=== PATIENT | female | born 1970 | race Caucasian/White ===

== ENCOUNTER 2017-04-07 08:54 | Outpatient (CLI) | payer BC ==
--- NOTE | 2017-04-07 11:49 | MRI ---
MRI RIGHT SHOULDER WITHOUT CONTRAST: HISTORY: Right shoulder pain. Slipped and fell a month ago. Unable to raise the shoulder. COMPARISON: Shoulder radiograph 02/20/17. FINDINGS: Biceps Tendon: There is extensive extraarticular biceps tenosynovitis. There is also interstitial t earing of the intertrabecular groove with medial displacement into an interstitial tear of the subsca pularis. An intraarticular biceps tendon is thinned. Glenoid Labrum: There is degenerative tearing of the superior labrum. Rotator Cuff: There is a full-thickness tear of the anterior 1 cm supraspinatus tendon from the foot plate with a 6 mm gap. There is also high-grade near full-thickness bursal surface tearing of the i nfraspinatus tendon and the caudal fibers of the supraspinatus tendon. Extensive interstitial tearin g is present. The rotator cable is displaced medially. There is extensive interstitial tearing of the subscapularis. Muscles: There is abnormal edema along the myotendinous junction and of the infraspinatus muscle. T here is 10-20% atrophy of the supraspinatus muscle. Bones: Moderate degenerative disease of acromioclavicular joint. No acute fracture. IMPRESSION: 1. Extensive extraarticular biceps tendosynovitis with interstitial tearing as well as subluxation i nto interstitial tear of the subscapularis. 2. Full-thickness tear anterior 1 cm fibers supraspinatus tendon from the footplate with 6 mm gap. 3. High-grade near-complete bursal surface tear of the posterior fibers of the supraspinatus tendon as well as the anterior 50% fibers of infraspinatus approximately 7 mm from the footplate. The rotat or cable is medially displaced approximately 4 mm. 4. Moderate degenerative signal throughout the superior labrum. 5. Moderate degenerative disease acromioclavicular joint. 6. Edema of the rotator interval suggesting capsulitis. POS: OFF
== END 2017-04-07 08:55 | disposition home or self-care (01) ==
LOC: SCSMRI 08:54
PROVIDERS: ATTEND Orthopaedic Surgery
DX: M25.511 Pain in right shoulder (principal); M19.011 Primary osteoarthritis, right shoulder; M75.101 Unspecified rotator cuff tear or rupture of right shoulder, not specified as traumatic

== ENCOUNTER 2017-05-25 09:33 | Outpatient (CLI) | payer BC ==
[2017-05-25 11:49] LABS: #Basophils 0.1 thou/uL (0.0-0.2); #Eosinphils 0.2 thou/uL (0.0-0.7); #Lymphocytes 3.2 thou/uL (1.20-3.40); #Monocytes 0.9 thou/uL (0.11-0.59); #Neutrophils 5.5 thou/uL (1.40-6.50); %Basophils 0.8 % (0.0-1.0); %Lymphocytes 32.2 % (21.0-51.0); %Monocytes 8.7 % (0.0-10.0); %Neutrophils 56.4 % (42.0-75.0); Hemoglobin 13.6 g/dL (12.0-16.0); Mean Corpuscular HGB CONC 33.1 g/dL (32.0-36.0); Mean Corpuscular Hemoglobin 33.4 pg (27.0-31.0); Mean Platelet Volume 7.7 fL (7.4-10.4); Platelet Count 337 thou/uL (130-400); RBC Distribution Width 11.9 % (11.5-14.5); Red Blood Cell (RBC) Count 4.06 mill/uL (4.20-5.40); White Blood Cell (WBC) Count 9.8 thou/uL (4.8-10.8)
== END 2017-05-25 09:34 | disposition home or self-care (01) ==
LOC: LABBT 09:33
PROVIDERS: ATTEND Orthopaedic Surgery
DX: Z01.812 Encounter for preprocedural laboratory examination (principal); M75.101 Unspecified rotator cuff tear or rupture of right shoulder, not specified as traumatic
CPT/HCPCS: 85025; 93005; 93010

== ENCOUNTER 2017-05-27 05:39 | Day surgery (SDC) | payer BC ==
[2017-05-25 10:25] VITALS: BMI 36.3
[2017-05-27] MEDS ORDERED: CEFAZOLIN/Water 2 GM/20 ML SYRINGE ONE (06:20)
[2017-05-27] MEDS ORDERED: Midazolam HCl 2 mg/2 ml Vial ONE (06:36)
[2017-05-27] MEDS ORDERED: Fentanyl 100 MCG/2 ML VIAL ONE (06:36)
[2017-05-27] MEDS ORDERED: Bupivacaine/Epinephrine 0.25% 30 ML VIAL ONE (06:47)
[2017-05-27] MEDS ORDERED: traMADol HCl 50 MG TAB PO PRN ×2 (07:05)
[2017-05-27] MEDS ORDERED: Promethazine HCl 25 MG/ML VIAL IM PRN (07:05)
[2017-05-27] MEDS ORDERED: Ondansetron HCl/PF 4 MG/2 ML Vial IVP PRN (07:05)
[2017-05-27] MEDS ORDERED: Ropivacaine 0.2% 550 ML 550 ML NERVE BLCK SCH (07:05)
[2017-05-27] MEDS ORDERED: Zolpidem Tartrate 5 MG TAB PO PRN (07:05)
--- NOTE | 2017-05-27 07:05 | HP ---
CHIEF COMPLAINT: Right shoulder pain. HISTORY OF PRESENT ILLNESS: Ms. Anderson is a pleasant 47-year-old right hand dominant female who works at the [employer]. The patient fell back at [place] with arm abducted. She continued to have pain in her shoulder, had imaging performed, MRI showing a rotator cuff tear. The patient presents for operative intervention. PAST MEDICAL HISTORY: Hypercholesterolemia, hypothyroidism, hypertension. PAST SURGICAL HISTORY: Low back procedure, not otherwise specified. CURRENT MEDICATIONS: Levothyroxine, control, fenofibrate, lisinopril. ALLERGIES: NAPROXEN. SOCIAL HISTORY: Positive smoker. . 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 REVIEW OF SYSTEMS: Noncontributory. PHYSICAL EXAMINATION: VITAL SIGNS: Afebrile, stable. GENERAL: Alert and oriented, no acute distress. The patient is resting comfortably in bed. HEENT: Normocephalic, atraumatic. Extraocular movements are intact. CHEST: Breath sounds unlabored. HEART: Regular rate and rhythm. ABDOMEN: Nontender, nondistended. EXTREMITIES: Right lower extremity 160 elevation, 50 external rotation. Neurovascular intact, dista lly tender to palpation lateral shoulder. She has a positive Monae's. LABORATORY AND X-RAY FINDINGS: MRI findings with full thickness supraspinatus with a leading edge of the infraspinatus tear with retraction and some grade I fatty atrophy, interstitial tearing and morejon ges of the biceps and acromioclavicular joint degenerative changes. IMPRESSION: 1. A full-thickness acute on chronic right rotator cuff tear with fatty atrophy. 2. Biceps tendinosis. 3. Possible impingement. PLAN: The patient will be taken to the OR for a right shoulder subacromial decompression, possible s ubacromial decompression, biceps tenotomy versus tenodesis and rotator cuff repair. I discussed with patient the risks and benefits of surgery. She understands and elects to proceed.
[2017-05-27] MEDS ORDERED: Fentanyl 100 MCG/2 ML VIAL IV PRN (07:06)
[2017-05-27] MEDS ORDERED: HYDROcodone/Acetaminophen 7.5/325 mg Tablet PO PRN ×2 (07:07→07:08)
[2017-05-27] MEDS ORDERED: PHENYLEPHRINE-NS 100 MCG/ML 10 ML SYRINGE ONE ×2 (08:00→13:40)
[2017-05-27] MEDS ORDERED: Phenylephrine HCL 10 MG/ML VIAL ONE (08:00)
[2017-05-27] MEDS ORDERED: Ketorolac Tromethamine 30 MG/ML VIAL IVP SCH (12:00)
--- NOTE | 2017-05-27 12:38 | OP ---
DATE OF PROCEDURE: 05/27/2017 POSTOPERATIVE DIAGNOSES: Right full thickness supraspinatus tear with leading infraspinatus leading edge subscapularis tear, biceps tendinosis, possible impingement. POSTOPERATIVE DIAGNOSES: Right full thickness leading edge supraspinatus tear, full thickness with full-thickness supraspinatus with leading edge infraspinatus tear, biceps tendinosis with 30% tearing , subscapularis partial tearing. Impingement. PROCEDURE PERFORMED: 1. Right rotator cuff repair. 2. Right biceps tenodesis. 3. Right subacromial decompression. STAFF: Alejandro Tafoya M.D. FACILITIES ENGINEER: FIONA Hull ANESTHESIA: Staff is Donta Pedersen, the patient received a general endotracheal intubation with inte rscalene block. ESTIMATED BLOOD LOSS: 30 mL. TOURNIQUET TIME: None. IMPLANTS: A 5.5 corkscrew x2 and a 5.5 SwiveLock x2. COMPLICATIONS: None. HISTORY OF PRESENT ILLNESS: Ms. 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 The patient had a full thickness tear of supraspinatus, biceps tendon and interstitial tearing signs of impingement. The patient fell over [place], pain is 5-6/10. She is a smoker. I discussed with her the risks and benefits of operative fixation for possible biceps tenotomy versus t enodesis, rotator cuff repair with subacromial decompression. She understood the risks and benefits to include pain, scar, bleeding, infection, damage to vital structures, decreased range of motion or strength, failure of repair, need for further surgeries, loss of life or limb. I discussed with the patient that her smoking will directly inhibit her ability to heal her rotator cuff repair. The juliette ent understood the risks and benefits and elected to proceed. PROCEDURE IN DETAIL: Timeout was performed designating the patient's right upper extremity as the op erative site based on sight, consents and marking. After completion of timeout, the patient's right upper extremity was prepped and draped in sterile fashion in beach chair position. All bony prominen cameron were well padded. She was stable through the course of the case. Posterior working portal and a nterior working portal, visualized intraarticularly. I saw the obvious full thickness tear intraarti cular of the supraspinatus, infraspinatus with some changes over the tuberosity to the articular liana in. The patient had about a 30% tear of the biceps which was visible on the intraarticular as well a s the leading edge of the subscapularis. She had fraying and interstitial damage when I pulled the b iceps into the groove and it did not look healthy. Given this, I performed a tenotomy. I tagged the biceps, evaluated the rest of the joint. No loose bodies, no other significant osteoarthritic defec ts. I moved subacromially, debrided all the bursa. I then took the cautery and cauterized the subac romial space and used a shaver and shaved down the subacromial space and shave bleeding bone on the g reater tuberosity up to the articular margin. I found the biceps. It was ratty and I was concerned about a tenodesis screw because it looked almost like a horse tail, felt that sewing it down would be better position. Therefore, I started and did not completely decompress the tunnel transverse ligam ent across the biceps. Therefore, I just stopped, left it partially in place. I then went back to m y arthroscopic rotator cuff repair. After my decompression, I then placed anchors off the anterior c artilage surface, two 5.5 anchors. I passed sutures through anterior to posterior, sewed 4 knots hor izontal mattress and then placed a double row laterally, placed my posterior row more posteriorly and my lateral just right at the bicipital groove. I then pulled the string and used the 4 sutures to a ctually sew with passing sutures and a looping around the biceps and sewing biceps into place. It wa s tethered both by the remnant of the groove as well as a suture to hold in place, but I feel like wi ll give a nice scar plane to scar into. I then washed, closed. Closed with 3-0 nylon, placed the pa tient on abduction pillow. She will perform elbow, wrist, and hand motion. I will see her back in 2 weeks.
[2017-05-27] MEDS ORDERED: Ropivacaine 0.5% HCl/PF (150 MG/30 ML VIAL) ONE (13:33)
[2017-05-27] MEDS ORDERED: Ropivacaine 0.2% HCl/PF (40 MG/20 ML VIAL) ONE (13:33)
[2017-05-27] MEDS ORDERED: Ketorolac Tromethamine 30 MG/ML VIAL ONE (13:40)
[2017-05-27] MEDS ORDERED: Glycopyrrolate 0.2 MG/ML 5 ML SYRINGE ONE (13:40)
[2017-05-27] MEDS ORDERED: Lidocaine 1% PF 5 ML VIAL ONE (13:40)
[2017-05-27] MEDS ORDERED: PROPOFOL 200 MG/20 ML VIAL ONE (13:40)
[2017-05-27] MEDS ORDERED: Dexamethasone 20 MG/5 ML VIAL ONE (13:40)
[2017-05-27] MEDS ORDERED: Ondansetron HCl/PF 4 MG/2 ML Vial ONE (13:40)
== END 2017-05-27 12:00 | disposition home or self-care (01) ==
LOC: SDC 05:39
PROVIDERS: ATTEND Orthopaedic Surgery
PROC: 0LM14ZZ Reattachment of Right Shoulder Tendon, Percutaneous Endoscopic Approach (ICD-10-PCS; principal; 2017-05-27)
PROC: 0LS14ZZ Reposition Right Shoulder Tendon, Percutaneous Endoscopic Approach (ICD-10-PCS; principal; 2017-05-27)
PROC: 0RNJ4ZZ Release Right Shoulder Joint, Percutaneous Endoscopic Approach (ICD-10-PCS; principal; 2017-05-27)
DX: M75.121 Complete rotator cuff tear or rupture of right shoulder, not specified as traumatic (principal); M75.21 Bicipital tendinitis, right shoulder; I10 Essential (primary) hypertension; E78.00 Pure hypercholesterolemia, unspecified; E07.9 Disorder of thyroid, unspecified; Z88.6 Allergy status to analgesic agent; Z79.899 Other long term (current) drug therapy
CPT/HCPCS: A4306; C1713; J1100; J1885; J2001; J2250; J2370; J2405; J2704; J2795; J3010

== ENCOUNTER 2019-01-10 08:20 | Outpatient (CLI) | payer BC ==
--- NOTE | 2019-01-10 10:57 | MRI ---
MRI LEFT SHOULDER: Date: 01/10/19 PROVIDED CLINICAL HISTORY: Left shoulder pain. FINDINGS: There is high grade partial thickness undersurface tearing involving the anterior distal supraspinatu s tendon at the footplate. The components of the rotator cuff appear otherwise intact. There is a thi ckened appearance to intraarticular segment of long head biceps tendon with associated increased sign al intensity on fluid sensitive sequences compatible with tendinosis or nonattenuating interstitial t earing. There is a mild glenohumeral joint effusion. There is signal alteration of the superior labrum compat ible with SLAP tear. There are foci of full thickness articular cartilage loss involving the glenoid, largest measuring about 4.0 mm. Acromioclavicular joint osteoarthrosis is demonstrated which produces mass effect upon the subjacent supraspinatus. Rotator cuff muscular volume appears preserved. No focal concerning regional marrow or muscular signal abnormality is evident. IMPRESSION: 1. High grade partial thickness undersurface tear involving supraspinatus tendon at the footplate. 2. Long head biceps tendinosis and/or nonattenuating partial tearing. 3. SLAP tear and glenoid articular chondrosis with mild glenohumeral joint effusion. 4. Acromioclavicular joint osteoarthrosis. POS: OFF
== END 2019-01-10 08:21 | disposition home or self-care (01) ==
LOC: SCSMRI 08:20
PROVIDERS: ATTEND Orthopaedic Surgery
DX: M25.512 Pain in left shoulder (principal); M19.012 Primary osteoarthritis, left shoulder; S43.432A Superior glenoid labrum lesion of left shoulder, initial encounter; M75.22 Bicipital tendinitis, left shoulder

== ENCOUNTER 2019-01-30 07:26 | Outpatient (CLI) | payer BC ==
[2019-01-30 14:08] LABS: BHCG - Serum Negative (NEGATIVE); Pregs Control Background? CLEAR/WHITE (CLR/WHITE); Pregs Control Bar Appear? YES (CONTROL BAR)
[2019-01-30 14:09] LABS: #Basophils 0.1 thou/uL (0.0-0.2); #Eosinphils 0.3 thou/uL (0.0-0.7); #Lymphocytes 3.9 thou/uL (1.20-3.40); #Monocytes 1.1 thou/uL (0.11-0.59); #Neutrophils 7.9 thou/uL (1.40-6.50); %Basophils 0.8 % (0.0-1.0); %Lymphocytes 29.2 % (21.0-51.0); %Monocytes 8.3 % (0.0-10.0); %Neutrophils 59.7 % (42.0-75.0); Hemoglobin 16.2 g/dL (12.0-16.0); Mean Corpuscular HGB CONC 33.4 g/dL (32.0-36.0); Mean Corpuscular Hemoglobin 33.3 pg (27.0-31.0); Mean Corpuscular Volume 99.8 fL (78.0-98.0); Mean Platelet Volume 8.9 fL (7.4-10.4); Platelet Count 236 thou/uL (130-400); RBC Distribution Width 12.2 % (11.5-14.5); Red Blood Cell (RBC) Count 4.88 mill/uL (4.20-5.40); White Blood Cell (WBC) Count 13.2 thou/uL (4.8-10.8)
[2019-01-30 14:11] LABS: Bacteria/HPF None Seen HPF (None Seen); Bilirubin Negative (Negative); Blood, Urine Negative (Negative); Clarity Clear (Clear); Glucose, Urine (Dipstick) Normal (Negative); Leukocyte Negative Leu/uL (Negative); Nitrite Negative (Negative); Protein, Urine (Dipstick) 10 mg/dL (Neg-Trace); RBC/HPF 0-3 HPF (0-3); Squamous Epithelial 0-3 HPF (0-3); Urobilinogen Normal mg/dL (Less than 2); WBC/HPF 0-3 HPF (0-3)
--- NOTE | 2019-02-02 21:14 | EKG ---
Test Reason : Blood Pressure : / mmHG Vent. Rate : 084 BPM Atrial Rate : 084 BPM P-R Int : 134 ms QRS Dur : 084 ms QT Int : 384 ms P-R-T Axes : 063 072 -25 degrees QTc Int : 453 ms Normal sinus rhythm T wave abnormality, consider inferior ischemia Abnormal ECG When compared with ECG of 25-MAY-2017 09:53, T wave inversion now evident in Inferior leads Nonspecific T wave abnormality now evident in Lateral leads Confirmed by Peña DWYER ([id number]) on 02/02/2019 9:14:14 PM Referred By: SHENA Confirmed By:Peña DWYER
== END 2019-01-30 07:27 | disposition home or self-care (01) ==
LOC: LABBT 07:26
PROVIDERS: ATTEND Orthopaedic Surgery
DX: Z01.818 Encounter for other preprocedural examination (principal); M75.102 Unspecified rotator cuff tear or rupture of left shoulder, not specified as traumatic
CPT/HCPCS: 81001; 84703; 85025; 93005; 93010

== ENCOUNTER 2019-01-31 05:37 | Day surgery (SDC) | payer BC ==
[2019-01-30 10:57] VITALS: BMI 37.9
[2019-01-31] MEDS ORDERED: Fentanyl 100 MCG/2 ML VIAL ONE ×2 (06:28→09:23)
[2019-01-31] MEDS ORDERED: Midazolam HCl 2 mg/2 ml Vial ONE (06:28)
[2019-01-31] MEDS ORDERED: HYDROcodone/Acetaminophen 10/325 mg Tablet PO PRN ×2 (06:36)
[2019-01-31] MEDS ORDERED: traMADol HCl 50 MG TAB PO PRN ×2 (06:36)
[2019-01-31] MEDS ORDERED: Ondansetron PF 4 MG/2 ML Vial IVP PRN (06:36)
[2019-01-31] MEDS ORDERED: Fentanyl 100 MCG/2 ML VIAL SLOW IVP PRN (06:36)
[2019-01-31] MEDS ORDERED: Zolpidem Tartrate 5 MG TAB PO PRN (06:36)
[2019-01-31] MEDS ORDERED: Promethazine HCl 25 MG/ML VIAL IM PRN (06:36)
[2019-01-31] MEDS ORDERED: Ropivacaine 0.2% 550 ML 550 ML NERVE BLCK SCH (06:36)
[2019-01-31] MEDS ORDERED: Acetaminophen 325 MG TAB PO PRN (06:38)
[2019-01-31] MEDS ORDERED: Lidocaine 1% w/Epinephrine 1:100K 20 ML VIAL ONE (07:12)
[2019-01-31] MEDS ORDERED: HYDROcodone/Acetaminophen 5/325 mg Tablet ONE (10:29)
[2019-01-31] MEDS ORDERED: Ketorolac Tromethamine 30 MG/ML VIAL IVP SCH (12:00)
--- NOTE | 2019-01-31 12:04 | OP ---
DATE OF PROCEDURE: 01/31/2019 PREOPERATIVE DIAGNOSES: 1. Left high-grade partial-thickness supraspinatus tear. 2. Left biceps tendinopathy with a superior labral tear. POSTOPERATIVE DIAGNOSES: 1. Left high-grade partial-thickness supraspinatus tear. 2. Left biceps tendinopathy with a superior labral tear. PROCEDURES PERFORMED: 1. Left rotator cuff repair. 2. Arthroscopic biceps tenodesis. MULTI SLIDE MACHINE TENDER: None. ANESTHESIOLOGIST: Ravin. ANESTHESIA: The patient received general endotracheal intubation with interscalene block. ESTIMATED BLOOD LOSS: 30 mL. TOURNIQUET TIME: None. IMPLANTS: 4.75 SwiveLock x2 and 8.0 Bio-Tenodesis screw. ANTIBIOTICS: Ancef 2 g. COMPLICATIONS: None. HISTORY OF PRESENT ILLNESS: Ms. Anderson is a 48-year-old female, who presented to me with left shoulder pain. 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 I discussed with the patient risks and benefits of arthroscopic evaluation of her left rotator cuff for possible repair, biceps tenodesis, and possible decompression. I discussed the risks and benefits of surgery, to include, pain, scar, bleeding, infection, damage to vital structures, decreased range of motion and strength, need for further surgeries, failure of procedure, Jordon deformity, and loss of life or limb. The patient understood the risks and benefits and elected to proceed. DESCRIPTION OF PROCEDURE: Time-out was performed designating the patient's left upper extremity as the operative site based on site, consents, and marking. After time-out, a posterior portal was placed. Anterior portal was placed within the rotator interval, visualized inside the joint. There was a superior labral tear with high-grade partial tear of the biceps, tendinopathy of the biceps at its base, debrided some of the labrum back, cauterized some of the synovium, saw little intra-articular component of a tear within the capsule as well as off the sling insertion on the footprint. The subscapularis had an intrasubstance tear, but it was not torn off the bone. The glenoid humerus had no full articular defects moved subacromially, debrided off the bursa, took down the CA ligament, exposed the patient's rotator cuff on a soft spot, which I fell into a hole within the leading edge of supraspinatus. I debrided off the footprint area and created a spot for my 4.75 SwiveLock, which I passed, passed 4 sutures and sewed them together and used a 4.75 SwiveLock laterally to sew down the cuff. In completion of this , I moved to biceps within the groove, pulled it out, it was kind of torn and ratty through its course from the previous intra-articular tearing. I drilled a hole for 8.[address] the screw. I passed it once, which kind of pulled out. It was turning into a horse's tail; therefore on my second pass, passed into place a good firm fixation. I was little concerned about the quality of the patient's biceps would be slow with her recovering, she may potentially rupture through. We washed, took final pictures, washed and closed with 3-0 nylon. The patient will be placed in a sling elbow, wrist, and hand motion. No active elbow flexion. I will follow up with her in about 2 weeks. Job ID: [id number]
[2019-01-31] MEDS ORDERED: Ropivacaine 0.5% HCl/PF (150 MG/30 ML VIAL) ONE (14:33)
[2019-01-31] MEDS ORDERED: ePHEDrine/0.9% NaCl/PF SYRINGE 50 mg/10 ml ONE (14:33)
[2019-01-31] MEDS ORDERED: Rocuronium Bromide 10 MG/ML (10ML VIAL) ONE (14:33)
[2019-01-31] MEDS ORDERED: Ondansetron PF 4 MG/2 ML Vial ONE (14:33)
[2019-01-31] MEDS ORDERED: PHENYLEPHRINE-NS 100 MCG/ML 10 ML SYRINGE ONE (14:33)
[2019-01-31] MEDS ORDERED: Ropivacaine 0.2% HCl/PF (40 MG/20 ML VIAL) ONE (14:33)
[2019-01-31] MEDS ORDERED: PROPOFOL 200 MG/20 ML VIAL ONE (14:33)
[2019-01-31] MEDS ORDERED: Lidocaine 1% PF 5 ML VIAL ONE (14:33)
== END 2019-01-31 11:50 | disposition home or self-care (01) ==
LOC: SDC 05:37
PROVIDERS: ATTEND Orthopaedic Surgery
DX: M75.112 Incomplete rotator cuff tear or rupture of left shoulder, not specified as traumatic (principal); M75.22 Bicipital tendinitis, left shoulder; S43.432A Superior glenoid labrum lesion of left shoulder, initial encounter; G89.18 Other acute postprocedural pain; I10 Essential (primary) hypertension; E78.00 Pure hypercholesterolemia, unspecified; E07.9 Disorder of thyroid, unspecified; Z79.899 Other long term (current) drug therapy; Z88.8 Allergy status to other drugs, medicaments and biological substances; Z91.012 Allergy to eggs
CPT/HCPCS: A4306; C1713; J2001; J2250; J2405; J2704; J2795; J3010

== ENCOUNTER 2022-02-24 11:09 | Outpatient (CLI) | payer BC | END 2022-02-24 11:10 | disposition home or self-care (01) | LOC: SCSRAD 11:09 | PROVIDERS: ATTEND Family Medicine | DX: M16.11 Unilateral primary osteoarthritis, right hip (principal) ==

== ENCOUNTER 2022-05-07 09:58 | Outpatient (CLI) | payer BC ==
[2022-05-07 11:12] LABS: #Basophils 0.1 10x3/uL (0.0-0.2); #Eosinphils 0.3 10x3/uL (0.0-0.5); #Monocytes 0.9 10x3/uL (0.0-1.1); #Neutrophils 3.8 10x3/uL (1.5-8.4); %Basophils 1.4 % (0.0-2.0); %Eosinophils 3.8 % (0.0-6.0); %Lymphocytes 29.8 % (18.0-47.0); %Monocytes 11.9 % (0.0-10.0); %Neutrophils 52.6 % (40.0-75.0); Hemoglobin 13.6 g/dL (12.0-15.5); Mean Corpuscular HGB CONC 32.2 g/dL (32.0-36.0); Mean Corpuscular Hemoglobin 31.8 pg (27.0-33.0); Mean Corpuscular Volume 98.6 fl (81.6-98.3); Mean Platelet Volume 10.6 fl (7.4-10.4); Platelet Count 309 10x3/uL (150-450); RBC Distribution Width 12.8 % (11.5-14.5); Red Blood Cell (RBC) Count 4.28 10x6/uL (3.90-5.03); White Blood Cell (WBC) Count 7.3 10x3/uL (3.5-10.5)
[2022-05-07 11:21] LABS: INR-International Normal Ratio 0.9; Prothrombin Time 10.3 sec (9.5-12.1)
[2022-05-07 11:36] LABS: Anion Gap 15 mmol/L (10-20); BUN (Urea Nitrogen) 13 mg/dL (9.8-20.1); Calc. Creatinine Clearance 0 mL/min (70-130); Calcium 9.5 mg/dL (7.8-10.44); Carbon Dioxide 24 mmol/L (22-29); Chloride 107 mmol/L (98-107); Estimated GFR 109; Glucose 85 mg/dL (70-105); Potassium 4.8 mmol/L (3.5-5.1); Sodium 141 mmol/L (136-145)
== END 2022-05-07 09:59 | disposition home or self-care (01) ==
LOC: LABBT 09:58
PROVIDERS: ATTEND Orthopaedic Surgery
DX: Z01.818 Encounter for other preprocedural examination (principal); M16.11 Unilateral primary osteoarthritis, right hip
CPT/HCPCS: 80048; 85025; 85610; 87081; 93005; 93010

== ENCOUNTER 2022-05-12 06:40 | Inpatient (IN) | payer BC ==
[2022-05-12] MEDS ORDERED: Midazolam HCl 2 mg/2 ml Vial ONE ×2 (07:33→08:59)
[2022-05-12] MEDS ORDERED: FENTANYL 50 MCG/ML 1 ML VIAL ONE (07:33)
[2022-05-12] MEDS ORDERED: Tranexamic Acid 1,000 MG/10 ML VIAL ONE (07:40)
[2022-05-12] MEDS ORDERED: Vancomycin (BATCH) 1.5 GRAM/300 ML BAG ONE (07:40)
[2022-05-12] MEDS ORDERED: CEFAZOLIN 2 GM VIAL ONE (07:41)
[2022-05-12] MEDS ORDERED: Sodium Chloride 0.9% 200 ML ONE (07:41)
[2022-05-12 08:16] LABS: SARS-CoV-2 NAA Rapid Test Not Detected (NotDetected)
[2022-05-12] MEDS ORDERED: fentaNYL PF 100 MCG/2 ML SYRINGE ONE (08:59)
[2022-05-12] MEDS ORDERED: Moisturizing Cream (Eucerin) 113 GM JAR TOP PRN (09:00)
[2022-05-12] MEDS ORDERED: traMADol HCl 50 MG TAB PO PRN ×2 (09:00)
[2022-05-12] MEDS ORDERED: HYDROcodone/Acetaminophen 5/325 mg Tablet PO PRN ×2 (09:00)
[2022-05-12] MEDS ORDERED: diphenhydrAMINE 50 MG/ML VIAL IM PRN (09:00)
[2022-05-12] MEDS ORDERED: Naloxone HCl 0.4 mg/ml Vial IVP PRN (09:00)
[2022-05-12] MEDS ORDERED: Zolpidem Tartrate 5 MG TAB PO PRN ×2 (09:00→11:06)
[2022-05-12] MEDS ORDERED: Promethazine HCl 25 MG/ML VIAL IM PRN ×2 (09:00→11:06)
[2022-05-12] MEDS ORDERED: Ondansetron PF 4 MG/2 ML Vial IVP PRN ×2 (09:00→11:06)
[2022-05-12] MEDS ORDERED: Promethazine HCl 25 MG SUPP PR PRN (09:00)
[2022-05-12] MEDS ORDERED: diphenhydrAMINE 25 MG CAP PO PRN ×2 (09:00→11:06)
[2022-05-12] MEDS ORDERED: FENTANYL 500 MCG/10 ML VIAL 500 MCG, Bupivacaine 0.75% 10 ML in Sodium Chloride 0.9% 80 ML EPIDURAL SCH (09:00)
[2022-05-12] MEDS ORDERED: Naloxone HCl 0.4 mg/ml Vial IV PRN (09:00)
[2022-05-12] MEDS ORDERED: diphenhydrAMINE 50 MG/ML VIAL IVP PRN (09:00)
[2022-05-12] MEDS ORDERED: Bupivacaine 0.25% 10 ML VIAL EPIDURAL PRN (09:05)
[2022-05-12] MEDS ORDERED: Ondansetron PF 4 MG/2 ML Vial ONE (09:15)
[2022-05-12] MEDS ORDERED: Rocuronium Bromide 10 MG/ML (10ML VIAL) ONE (09:15)
[2022-05-12] MEDS ORDERED: Lidocaine 1.5% w/Epi 1:200K 30 ML VIAL (Epid Use) ONE (09:15)
[2022-05-12] MEDS ORDERED: ePHEDrine 50 MG/ML VIAL ONE (09:15)
[2022-05-12] MEDS ORDERED: PHENYLEPHRINE-NS 100 MCG/ML 10 ML SYRINGE ONE (09:15)
[2022-05-12] MEDS ORDERED: PROPOFOL 200 MG/20 ML VIAL ONE (09:15)
[2022-05-12] MEDS ORDERED: Lidocaine 1% PF 5 ML VIAL ONE (09:15)
[2022-05-12] MEDS ORDERED: Ropivacaine 0.2% HCl/PF 20 ML ONE (10:09)
[2022-05-12] MEDS ORDERED: SUGAMMADEX SODIUM 200 MG/2 ML VIAL ONE (10:45)
[2022-05-12] MEDS ORDERED: Acetaminophen 325 MG TAB PO PRN (11:06)
[2022-05-12 12:29] VITALS: BMI 37.4
[2022-05-12] MEDS: Sodium Chloride 0.9% 1,000 ML IV SCH ×2 (12:51→21:58)
[2022-05-12] MEDS: Ferrous Gluconate 324 MG TAB PO SCH (16:44)
[2022-05-12] MEDS: CEFAZOLIN 2 GM in Sodium Chloride 0.9% 100 ML IVPB SCH (16:44)
[2022-05-12] MEDS ORDERED: FLU VACC QS2022-23(6MOS UP)/PF 60 MCG/0.5 ML SYRINGE IM ONE (18:00)
[2022-05-12] MEDS: Senokot S 8.6-50 MG TAB PO SCH (21:15)
[2022-05-12] MEDS: Aspirin 81 mg Enteric Coated Tablet PO SCH (21:15)
[2022-05-13] MEDS: CEFAZOLIN 2 GM in Sodium Chloride 0.9% 100 ML IVPB SCH (00:59)
[2022-05-13 06:51] LABS: Hemoglobin 11.3 g/dL (12.0-16.0); Mean Corpuscular Hemoglobin 33.3 pg (27.0-31.0); Mean Platelet Volume 8.3 fL (7.4-10.4); Platelet Count 233 10x3/uL (130-400); RBC Distribution Width 11.5 % (11.5-14.5); Red Blood Cell (RBC) Count 3.41 mill/uL (4.20-5.40); White Blood Cell (WBC) Count 11.3 10x3/uL (4.8-10.8)
[2022-05-13] MEDS: Aspirin 81 mg Enteric Coated Tablet PO SCH ×2 (07:49→21:30)
[2022-05-13] MEDS: Multivitamin W/ Minerals 1 TAB PO SCH (07:49)
[2022-05-13] MEDS: Sodium Chloride 0.9% 1,000 ML IV SCH ×2 (07:49→16:59)
[2022-05-13] MEDS: Ferrous Gluconate 324 MG TAB PO SCH ×2 (07:49→16:54)
[2022-05-13] MEDS: Senokot S 8.6-50 MG TAB PO SCH ×2 (07:49→21:26)
[2022-05-13] MEDS: Ketorolac Tromethamine 30 MG/ML VIAL IVP SCH ×3 (11:56→21:25)
[2022-05-13] MEDS ORDERED: HYDROcodone/Acetaminophen 10/325 mg Tablet PO PRN ×2 (13:12)
[2022-05-13] MEDS ORDERED: Cholecalciferol 1,000 UNITS (25 MCG) TAB PO SCH (21:00)
[2022-05-13] MEDS ORDERED: Rosuvastatin 5 MG TAB PO SCH (21:00)
[2022-05-13] MEDS ORDERED: Lisinopril 10 MG TAB PO SCH (21:00)
[2022-05-13] MEDS: Fenofibrate Nanocrystallized 145 MG TAB PO SCH ×2 (21:25→21:26)
[2022-05-14] MEDS: Ketorolac Tromethamine 30 MG/ML VIAL IVP SCH ×2 (04:56→09:05)
[2022-05-14] MEDS: Sodium Chloride 0.9% 1,000 ML IV SCH ×2 (05:02→13:40)
[2022-05-14] MEDS ORDERED: Levothyroxine Sodium 100 MCG TAB PO SCH (06:00)
[2022-05-14 06:38] LABS: Mean Corpuscular Hemoglobin 33.4 pg (27.0-31.0); Mean Platelet Volume 8.3 fL (7.4-10.4); Platelet Count 205 10x3/uL (130-400); RBC Distribution Width 11.7 % (11.5-14.5); Red Blood Cell (RBC) Count 3.31 mill/uL (4.20-5.40)
[2022-05-14] MEDS: Multivitamin W/ Minerals 1 TAB PO SCH (09:04)
[2022-05-14] MEDS: Aspirin 81 mg Enteric Coated Tablet PO SCH (09:04)
[2022-05-14] MEDS: Senokot S 8.6-50 MG TAB PO SCH (09:04)
[2022-05-14] MEDS: Ferrous Gluconate 324 MG TAB PO SCH (09:04)
[2022-05-14 12:47] VITALS: BP 129/68; TEMP 98.4
== END 2022-05-14 14:30 | disposition home or self-care (01) | DRG 470 ==
LOC: SDC 06:40 → SURG A 11:06 → OBSVTOIN 05-14 07:24
PROVIDERS: ADMIT Orthopaedic Surgery; ATTEND Orthopaedic Surgery
PROC: 0SR90JZ Replacement of Right Hip Joint with Synthetic Substitute, Open Approach (ICD-10-PCS; principal; 2022-05-12)
DX: M16.11 Unilateral primary osteoarthritis, right hip (principal); Z20.822 Contact with and (suspected) exposure to COVID-19
CPT/HCPCS: 36415; 72170; 77014; 77280; 77290; 77307; 77334; 77412; 85027; 96374; 96375; 96376; C1776; G0378; J1885; J2001; J2250; J2405; J2704; J2795; J3010; J3370; J3490; J7050; U0002

== ENCOUNTER 2023-01-05 13:20 | Outpatient (CLI) | payer BC | END 2023-01-05 13:21 | disposition home or self-care (01) | LOC: SCSRAD 13:20 | PROVIDERS: ATTEND Family Medicine | DX: M54.40 Lumbago with sciatica, unspecified side (principal); M47.816 Spondylosis without myelopathy or radiculopathy, lumbar region | CPT/HCPCS: 72100 ==

== ENCOUNTER 2023-04-08 12:56 | Outpatient (CLI) | payer BC | END 2023-04-08 12:57 | disposition home or self-care (01) | LOC: SCSMRI 12:56 | PROVIDERS: ATTEND Family Medicine | DX: M51.16 Intervertebral disc disorders with radiculopathy, lumbar region (principal); M96.1 Postlaminectomy syndrome, not elsewhere classified; M51.37 Other intervertebral disc degeneration, lumbosacral region; M47.26 Other spondylosis with radiculopathy, lumbar region; M47.817 Spondylosis without myelopathy or radiculopathy, lumbosacral region; M48.061 Spinal stenosis, lumbar region without neurogenic claudication; M48.07 Spinal stenosis, lumbosacral region | CPT/HCPCS: 72148 ==